=== PATIENT | female | born 1995 | race African-American/Black ===

== ENCOUNTER 2025-07-22 13:21 | Outpatient (CLI) | payer OTHER, SELFPAY ==
--- NOTE | ~2025-07-22 | US_ITS ---
EXAMINATION: US soft tissue head and neck DATE: 07/22/2025 13:43 INDICATION: Skin cyst TECHNIQUE: Multiple grayscale and Doppler ultrasound images of the submental region of concern were obtained. COMPARISON: None FINDINGS: There are a couple hypoechoic lymph nodes with central echogenic fatty alfred in the submental region of concern the larger measuring 1.7 x 1.6 x 1.0 cm and the smaller lymph nodes measuring 1.1 x 0.8 x 0.6 cm, 0.8 x 0.8 x 0.4 cm, 1.5 x 1.1 x 0.6 cm and 1.1 x 0.7 x 0.4 cm. IMPRESSION: 1. Couple abnormality of concern below the chin corresponds to a a few mildly enlarged likely reactive submental lymph nodes. Per patient provided history of the palpable size is decreased since initiation of antibiotics. Recommend continued clinical follow-up with repeat imaging as clinically indicated. Reviewed, dictated and finalized at location A. IMPRESSION: 1. Couple abnormality of concern below the chin corresponds to a a few mildly e nlarged likely reactive submental lymph nodes. Per patient provided history of the palpable size is decreased since initiation of antibiotics. Recommend joel nued clinical follow-up with repeat imaging as clinically indicated.
== END 2025-07-22 13:22 | disposition home or self-care (01) ==
LOC: MICIMG 13:24
PROVIDERS: PCP Physician Assistant Medical; Visit Provider Physician Assistant Medical
DX: L72.9 Follicular cyst of the skin and subcutaneous tissue, unspecified (principal)
CPT/HCPCS: 76536